=== PATIENT | male | born 1975 | race Caucasian/White ===

== ENCOUNTER → 2020-09-03 07:30 | Outpatient (CLI) | payer SELFPAY ==
--- NOTE | 2020-09-03 07:34 | DI.US.S_ITS ---
PROCEDURE: US SCROTUM INDICATIONS: LEFT TESTICULAR MASS TECHNIQUE: Real-time scanning was performed of the scrotum and testicles, with image documentation. Color and pulse Doppler interrogation was performed of both testicles. COMPARISON: None. FINDINGS: Right: Testicle is normal in size at 4.4 x 3.3 x 2.3 cm, and homogenous in echotexture. Epididymis is normal in overall size and morphology. Small epididymal 1 mm cyst. Epididymis measures 1 cm. No hydrocele or varicoceles. Arising from the scrotal wall, there is a solid 1.2 x 1.4 cm mass lesion with internal vascularity which is well-circumscribed. Left: Testicle is normal in size at 4.1 x 3.4 x 2.2 cm, and homogeneous in echotexture. No hydrocele or varicoceles. Overlying scrotal skin is normal in thickness. The epididymis is enlarged and contains multiple cysts with internal debris without neural nodularity. Largest individual cyst measures 4.6 x 3.9 cm. In combined total, cysts measure 6.1 x 4.8 x 2.5 cm. Doppler: Color and pulse Doppler demonstrate normal and symmetric arterial flow in both testicles. IMPRESSION: 1. Multiple cysts within the left epididymis measure up to 6.1 cm in total. Several cysts show internal debris. No evidence of mural nodularity. 2. Right scrotal solid dermal mass lesion with internal vascularity. Given history of recent growth, consider urologic consult and/or tissue diagnosis. 3. No evidence of testicular mass lesion. Dictated by: Charly Huertas M.D. on 09/03/2020 at 9:31 Approved by: Charly Huertas M.D. on 09/03/2020 at 9:52
== END ==
PROVIDERS: Referring Provider Physician Assistant; Visit Provider Physician Assistant
DX: N50.89 Other specified disorders of the male genital organs (principal); N50.3 Cyst of epididymis
CPT/HCPCS: 76870